=== PATIENT | male | born 1940 | race Caucasian/White ===

== ENCOUNTER 2017-05-11 09:39 | Emergency (ER) | payer MEDICARE, MEDICAID ==
[~2017-05-11] VITALS: Ht 172.7 cm; Wt 90.7 kg
[2017-05-11] MEDS ORDERED: HTN MEDICATION (09:52)
[2017-05-11] MEDS ORDERED: ASPI-605 PO (09:52)
[2017-05-11] MEDS ORDERED: INSULIN (09:52)
[2017-05-11] MEDS ORDERED: LEVOTHYROXINE (09:52)
--- NOTE | 2017-05-11 10:59 | NUR ---
Patient discharged to home in stable conditon. Written and verbal after care instructions given. Patient verbalizes understanding of instructions.pt wheelchaired out to the car, pt waife driving
== END 2017-05-11 11:01 | disposition home or self-care (01) ==
LOC: ER 09:43
DX: S82.001A Unspecified fracture of right patella, initial encounter for closed fracture (principal); I10 Essential (primary) hypertension; E11.9 Type 2 diabetes mellitus without complications; Z87.442 Personal history of urinary calculi; Z79.4 Long term (current) use of insulin; Z79.82 Long term (current) use of aspirin; W19.XXXA Unspecified fall, initial encounter; Y93.89 Activity, other specified; Y92.9 Unspecified place or not applicable; Y99.9 Unspecified external cause status
CPT/HCPCS: A4663